=== PATIENT | female | born 1980 | race Caucasian/White ===

== ENCOUNTER 2025-05-12 12:29 | Emergency (ER) | payer BC, MEDICAID, OTHER ==
[~2025-05-12] VITALS: Ht 170.2 cm; Wt 68.3 kg
[2025-05-12] MEDS ORDERED: CLEO300C2 PO (13:30)
[2025-05-12 13:44] VITALS: BP 135/75; TEMP 98.9; O2SAT 100
== END 2025-05-12 13:47 | disposition home or self-care (01) ==
LOC: M ED 12:29
DX: K04.7 Periapical abscess without sinus (principal); F17.200 Nicotine dependence, unspecified, uncomplicated